=== PATIENT | female | born 1980 | race Caucasian/White ===

== ENCOUNTER 2019-11-05 15:20 | Outpatient (CLI) | payer BC, SELFPAY ==
--- NOTE | ~2019-11-05 | US_ITS ---
EXAMINATION: US pelvic complete w TV DATE: 11/05/2019 16:34 INDICATION: Right lower quadrant abdominal pain. TECHNIQUE: Multiple transabdominal and endovaginal sonographic images of the pelvis were obtained. COMPARISON: CT and ultrasound dated 03/01/2019 FINDINGS: The uterus is not visualized and reportedly surgically absent. The right ovary measures 6.3 x 3.9 x 5 .3 cm. Within the right ovary is a 2.8 x 2.7 x 2.4 cm complex cystic lesion with multiple thin hospital internship al septations yielding a reticulated pattern, typical for hemorrhagic cyst. The left ovary measures 4 .4 x 2.8 x 4.5 cm. There are couple small anechoic cysts/follicles within the left ovary, the largest measuring approximately 8mm. The remainder of the left ovary is comprised of 3 relatively homogeneou s hypoechoic lobular regions, the largest measuring approximately 3.1 cm. It is unclear whether the l obular components represent solid soft tissue or complex cystic lesion. Vascular flow is identified i n both ovaries on color Doppler. There is a small amount of free fluid in the pelvis. IMPRESSION: 1. 2.8 cm likely hemorrhagic cyst within the right ovary. 2. Lobular hypoechoic regions within the left ovary, unclear whether this represents solid soft tissu e or complex fluid such as Morquio's less organized hemorrhagic cysts. Solid neoplasm cannot be absol utely excluded. Consider either 6 or 12 week follow-up ultrasound or further evaluation with contrast -enhanced MRI. Reviewed, dictated and finalized at location A. IMPRESSION: 1. 2.8 cm likely hemorrhagic cyst within the right ovary. 2. Lobular hypoechoic regions within the left ovary, unclear whether this repre sents solid soft tissue or complex fluid such as Morquio's less organized hemor rhagic cysts. Solid neoplasm cannot be absolutely excluded. Consider either 6 o r 12 week follow-up ultrasound or further evaluation with contrast-enhanced MRI .
[2019-11-05 16:08] LABS: Basophils Absolute Auto 0.1 K/mm3 (0.0-0.1); Basophils Percent Auto 0.6 % (0.2-1.2); Eosinophils Absolute Auto 0.6 K/mm3 (0-0.3); Eosinophils Percent Auto 4.1 % (0-4.4); Hematocrit 39.5 % (37.0-47.0); Hemoglobin 13.6 g/dL (12.0-15.0); Immature Granulocyte Absolute 0.04 K/mm3 (0.00-0.031); Immature Granulocyte Percent A 0.3 % (0-0.5); Lymphocytes Absolute Auto 2.42 K/mm3 (0.9-3.2); Lymphocytes Percent Auto 17.1 % (18.3-44.2); Mean Corpuscular HGB Conc 34.4 g/dl (32-36); Mean Corpuscular Hemoglobin 29.7 pg (26-34); Mean Corpuscular Volume 86.2 fl (80-100); Mean Platelet Volume 10.8 fl (7.4-10.4); Monocytes Absolute Auto 1.1 K/mm3 (0.1-0.6); Neutrophils Absolute Auto 9.9 K/mm3 (1.3-6.7); Neutrophils Percent Auto 69.9 % (45.5-73.1); Platelet Count Result 337 k/mm3 (150-375); Red Blood Count 4.58 M/mm3 (4.2-5.4); Red Cell Distribution Width 13.6 % (11.5-14.5); White Blood Count 14.1 K/mm3 (4.5-10.0)
[2019-11-05 16:22] LABS: Alanine Aminotransferase 82 U/L (4-35); Albumin Level 4.2 g/dL (3.5-5.1); Alkaline Phosphatase 84 U/L (38-126); Anion Gap 10 mmol/L (8-16); Aspartate Amino Transferase 52 U/L (14-36); Bilirubin,Total 0.6 mg/dL (0.2-1.3); Blood Urea Nitrogen 19 mg/dL (7-17); Calcium 9.2 mg/dL (8.4-10.2); Carbon Dioxide 26 mmol/L (22-30); Chloride 98 mmol/L (98-107); Estimated Glomerular Filt Rate > 60; Glucose 96 mg/dL (65-105); Potassium 2.9 mmol/L (3.4-5.0); Sodium 134 mmol/L (137-145)
== END 2019-11-05 15:21 | disposition home or self-care (01) ==
PROVIDERS: PCP Internal Medicine; Visit Provider Registered Nurse
DX: N83.201 Unspecified ovarian cyst, right side (principal)
CPT/HCPCS: 36415; 76830; 76856; 80053; 85025

== ENCOUNTER 2019-11-06 09:50 | Outpatient (CLI) | payer BC, SELFPAY ==
--- NOTE | ~2019-11-06 | CT_ITS ---
EXAMINATION: CT abdomen pelvis w con EXAM DATE: 11/06/2019 10:23 INDICATION: Right lower quadrant pain, elevated white blood cell count, constipation. TECHNIQUE: Spiral CT of the abdomen and pelvis was performed following intravenous injection of 100 m L Omnipaque 350. Axial, coronal and sagittal images were reviewed. The dose-length product (DLP) fo r this examination was 533.95 mGy-cm. The exposure was tailored according to patient size (auto mA e xposure control), and iterative reconstruction (ASIR) was used as additional dose reduction technique . Comparison is made to prior examination from 03/01/2019. FINDINGS: The liver, spleen, adrenal glands and pancreas are unremarkable. There are cholecystectomy clips. Portal and splenic veins are patent. Kidneys enhance symmetrically. There is no hydronephr osis. There is a 3 mm right inferior calyceal stone. Patient has had hysterectomy. Both ovaries appea r enlarged measuring about 4 x 5 cm. There is cystic lesion in the right kidney. There is fat strandi ng, inflammation in the pelvis and around the ovaries. There is bladder wall thickening, enhancing mu cosa, surrounding inflammation. On prior study the ovaries were smaller and there was no pelvic or b ladder inflammation. Also several loops of small bowel adjacent to this which appear inflamed. There is no retroperitoneal or pelvic lymphadenopathy. Appendix is normal in caliber and does not appear obstructed. Small amount of fat stranding in the re gion, suspected to be secondary to the pelvic findings. The stomach and small bowel are unremarkable . There is expected amount of colonic stool. No free intraperitoneal gas. The heart is normal in size. There are no pericardial or pleural effusions. The lung bases are unremarkable. There are n o osteoblastic or osteolytic lesions identified. IMPRESSION: Mildly enlarged ovaries, inflammation around ovaries, bladder (with enhancing mucosa), an d also several adjacent small bowel loops. Could be cystitis, pelvic inflammatory disease, less like ly inflammatory bowel disease. Correlating with yesterday's pelvic sonogram, which demonstrated prote inaceous cystic ovarian regions bilaterally, containing proteinaceous fluid, differential diagnosis i ncludes inflammatory endometriomas. Reviewed, dictated and finalized at location B. IMPRESSION: Mildly enlarged ovaries, inflammation around ovaries, bladder (with enhancing mucosa), and also several adjacent small bowel loops. Could be cyst itis, pelvic inflammatory disease, less likely inflammatory bowel disease. Geri elating with yesterday's pelvic sonogram, which demonstrated proteinaceous cyst ic ovarian regions bilaterally, containing proteinaceous fluid, differential di agnosis includes inflammatory endometriomas.
== END 2019-11-06 09:51 | disposition home or self-care (01) ==
LOC: ANHIMG 09:52
PROVIDERS: PCP Internal Medicine; Visit Provider Registered Nurse
DX: R10.11 Right upper quadrant pain (principal); D72.829 Elevated white blood cell count, unspecified; K59.00 Constipation, unspecified; R10.31 Right lower quadrant pain; R93.89 Abnormal findings on diagnostic imaging of other specified body structures
CPT/HCPCS: 74177; Q9967

== ENCOUNTER 2019-12-26 01:01 | Outpatient (CLI) | payer BC, SELFPAY ==
[2019-12-26 19:19] LABS: SARS-CoV-2 RNA PCR Negative
== END 2019-12-26 01:02 | disposition home or self-care (01) ==
LOC: ANHCOVIDDT 01:02
PROVIDERS: PCP Internal Medicine; Visit Provider Obstetrics & Gynecology
DX: Z01.812 Encounter for preprocedural laboratory examination (principal); Z20.828 Contact with and (suspected) exposure to other viral communicable diseases
CPT/HCPCS: 87635; C9803; U0003

== ENCOUNTER 2019-12-26 08:55 | Outpatient (CLI) | payer BC, SELFPAY ==
--- NOTE | 2019-12-26 09:31 | ECG_ITS ---
Measurements Intervals [place] Rate: 81 P: -19 CA: 100 QRS: 50 QRSD: 71 T: 11 QT: 355 QTc: 412 Interpretive Statements SINUS RHYTHM WITH SHORT CA INTERVAL INCOMPLETE RIGHT BUNDLE BRANCH BLOCK BORDERLINE ST ABNORMALITY- ANTERIOR LEADS BASELINE WANDER- V5 BORDERLINE ECG Electronically Signed On 12-26-2019 9:44:33 CDT by Jenaro Pinto D.O.
[2019-12-26 09:36] LABS: Anion Gap 9 mmol/L (8-16); Blood Urea Nitrogen 14 mg/dL (7-17); Calcium 9.5 mg/dL (8.4-10.2); Carbon Dioxide 30 mmol/L (22-30); Chloride 103 mmol/L (98-107); Estimated Glomerular Filt Rate > 60; Glucose 107 mg/dL (65-105); Potassium 3.1 mmol/L (3.4-5.0); Sodium 142 mmol/L (137-145)
== END 2019-12-26 08:56 | disposition home or self-care (01) ==
PROVIDERS: PCP Internal Medicine; Visit Provider Anesthesiology
DX: R10.2 Pelvic and perineal pain (principal); I10 Essential (primary) hypertension; I45.10 Unspecified right bundle-branch block
CPT/HCPCS: 36415; 80048; 86850; 86900; 86901; 93005

== ENCOUNTER 2019-12-28 00:21 | Day surgery (SDC) | payer BC, SELFPAY ==
[2019-12-17 09:59] VITALS: BMI 26.8
--- NOTE | 2019-12-26 08:06 | PM.IMHP ---
H&P: HPI History of Present Illness Date/Time: 12/26/19 08:06 Chief complaint: pelvic pain, right ovarian cyst Narrative: Bettina Sampson is a 39 year old female who is admitted for laparoscopic right salpingo-oophorectomy. She has right-sided pain and discomfort. She is status post hysterectomy. Ultrasound showing a right ovarian mass. Risks and benefits were reviewed Review of Systems Review of Systems: All systems reviewed & are unremarkable except as noted in HPI and below PMFSH Past Medical History Medical History (Updated 03/02/19 @ 00:00 by Obed Murphy) DVT (deep venous thrombosis) Migraine Pulmonary embolism Surgical History Surgical History (Updated 03/01/19 @ 11:00 by Tasha Arnold) History of cholecystectomy History of hysterectomy Social History Social History (Updated 03/01/19 @ 10:10 by Tasha Arnold) Smoking packs per day: 1 Smoking cigarettes per day: 20.0 Years smoked: 20 Smoking pack-years: 20.00 Smoking status: Current every day smoker Tobacco type: cigarettes and e-cigarettes/vaping Additional smoking assessment comments: QUIT SMOKING CIGARETTES 10 YRS AGO. NOW VAPES- HAS VAPED FOR 10 YRS. Alcohol intake: current Substance use: never Gender identity (if verbalized by the patient): Female Spiritual care concerns: No Meds Home Medications and Allergies Home Medications Medication Instructions Recorded Confirmed Type prochlorperazine maleate 10 mg PO Q6H PRN #20 tablet 03/01/19 12/17/19 Rx aspirin 325 mg PO DAILY 12/17/19 12/17/19 History hydrochlorothiazide 12.5 mg PO DAILY 12/17/19 12/17/19 History ketorolac 10 mg PO Q6H PRN 12/17/19 12/17/19 History metoclopramide HCl [Reglan] 10 mg PO Q6H PRN 12/17/19 12/17/19 History topiramate [Topamax] 100 mg PO BID 12/17/19 12/17/19 History venlafaxine [Effexor XR] 225 mg PO DAILY 12/17/19 12/17/19 History zolpidem [Ambien CR] 12.5 mg PO HS 12/17/19 12/17/19 History Allergies Allergy/AdvReac Type Severity Reaction Status Date / Time cefuroxime Allergy Severe RESP Unverified 12/17/19 09:58 DISTRESS Exam Const: General: no acute distress Eyes: General: appearance normal, both eyes and all related structures Neck: Neck: supple and no JVD Thyroid: thyroid normal Resp: Effort & Inspection: normal respiratory effort Auscultation: clear to auscultation bilaterally Cardio: Rate: regular rate Rhythm: regular rhythm GI: Inspection: non-distended GI Palp: Yes Soft to palpation, No Tenderness to palpation present (GI) and No Guarding due to palpation present (GI) Auscultation: normal bowel sounds : General: Yes bladder normal to inspection External Female Exam: normal external appearance Speculum Exam - Vagina: normal appearance of the vagina Speculum Exam - Cervix: Cervix absent Bimanual exam- vagina & uterus: uterus absent Bimanual Exam- Adnexa, other: Adnexal mass present ( fullness in the right adnexa is appreciated) Skin: General skin exam: no rashes or lesions noted Extrem: General: normal to inspection and no edema Psych: Mental Status: mental status grossly normal Affect: normal affect Assessment and Plan Additional Plan impression: Right adnexal mass Plan: Laparoscopic right salpingo-oophorectomy
[2019-12-28] VITALS (12 sets, daily range): BP systolic 90–128; BP diastolic 52–78; PULSE 73–92; RESP 10–20; TEMP 35.9–36.6; O2SAT 93–100
--- NOTE | 2019-12-28 06:46 | WPDHPUPDATE1 ---
History and Physical Update Update Date/Time: 12/28/19 06:46 History and Physical has been reviewed, including an updated exam of the patient. There are NO changes in the patient's condition. Risks, benefits, and alternatives have been discussed and questions answered. Patient agrees to proceed with procedure.
[2019-12-28] MEDS: LACTATED RINGERS 1,000 ML 30 ML IV CONT ×2 (08:03→10:14)
[2019-12-28] MEDS: ACETAMINOPHEN 500 MG TABLET 1000 MG PO (08:04)
[2019-12-28] MEDS: KETOROLAC 15 MG/ML VIAL (*BKC) IV PUSH (08:04)
--- NOTE | 2019-12-28 08:06 | WPDANESEPPF ---
Anes - Initial Pre Proc Eval Procedure: Operation Date: 12/28/19 09:30 Proposed Procedures p Laparoscopic Right Salpingo Oophorectomy - Jonathan Cotto MD Date/Time: 12/28/19 08:06 Surgeon: Jonathan Cotto MD Pre Op Diagnosis: pelvic pain, right ovarian cyst Patient Data Age: 39 Gender: F Height: 5 ft 8 in Weight: 80 kg Allergies Allergy/AdvReac Type Severity Reaction Status Date / Time cefuroxime Allergy Severe RESP Unverified 12/17/19 09:58 DISTRESS Home Medications Medication Instructions Recorded Confirmed Type prochlorperazine maleate 10 mg PO Q6H PRN #20 tablet 03/01/19 12/17/19 Rx aspirin 325 mg PO DAILY 12/17/19 12/17/19 History hydrochlorothiazide 12.5 mg PO DAILY 12/17/19 12/17/19 History ketorolac 10 mg PO Q6H PRN 12/17/19 12/17/19 History metoclopramide HCl [Reglan] 10 mg PO Q6H PRN 12/17/19 12/17/19 History topiramate [Topamax] 100 mg PO BID 12/17/19 12/17/19 History venlafaxine [Effexor XR] 225 mg PO DAILY 12/17/19 12/17/19 History zolpidem [Ambien CR] 12.5 mg PO HS 12/17/19 12/17/19 History hydrocodone-acetaminophen 1 tablet PO Q6H PRN #30 tablet 12/28/19 Rx Patient hx anesthesia problems: post op nausea/vomiting Family hx anesthesia problems: none PMFSH Past Medical History Medical History DVT (deep venous thrombosis) Migraine Pulmonary embolism Surgical History Surgical History History of cholecystectomy History of hysterectomy Social History Social History Smoking packs per day: 1 Smoking cigarettes per day: 20.0 Years smoked: 20 Smoking pack-years: 20.00 Smoking status: Current every day smoker Tobacco type: cigarettes and e-cigarettes/vaping Additional smoking assessment comments: QUIT SMOKING CIGARETTES 10 YRS AGO. NOW VAPES- HAS VAPED FOR 10 YRS. Alcohol intake: current Alcohol use details: RARE Substance use: never Living arrangements: with family Gender identity (if verbalized by the patient): Female Spiritual care concerns: No Anes - Eval Final PreProcedure Day of Procedure 12/28/19 08:06 Patient weight: overweight Heart: regular rate and rhythm Lungs: clear to auscultation Airway: Mallampati scale class II Neurological: alert and oriented Last oral intake: >/= 8 hours ASA classification: II Emergent: no Anesthetic plan: proceed Anesthesia type and monitoring: general ETT and standard monitoring Informed Consent: The patient's anesthetic plan and its attendant risks and benefits were discussed with the patient/family/POA. Questions were solicited and answers provided to the satisfaction of the patient/family/POA.
[2019-12-28] MEDS: SCOPOLAMINE 1.5 MG PATCH TRANSDERM (08:32)
[2019-12-28] MEDS: ONDANSETRON INJ 4 MG/2 ML VIAL IV PUSH (08:32)
[2019-12-28] MEDS: FAMOTIDINE 20 MG/2 ML VIAL IV PUSH (08:32)
[2019-12-28] MEDS: fentaNYL CITRATE INJ (*CRX) 100 MCG/2 ML VIAL 25 MCG IV PUSH ×4 (08:40→11:09)
--- NOTE | 2019-12-28 10:36 | PM.PROC ---
Procedure Note - Detailed Date of procedure: 12/28/19 Pre-op diagnosis: pelvic pain, right ovarian cyst Surgeon: Jonathan Cotto MD Postop diagnosis pelvic pain / right ovarian cyst left ovarian cyst /pelvic adhesions Procedure: Laparoscopic right salpingo-oophorectomy destruction left ovarian cyst. Lysis of Anesthesia: General endotracheal EBL 5cc Complications: None Findings: Absent uterus. Complex right ovarian cyst. Pelvic adhesions. Left ovarian cyst Procedure: The patient was prepped and draped in the normal sterile fashion placed in the dorsal lithotomy position. Under excellent general trach anesthesia the bladder was emptied of clear urine. A sponge stick was placed in the vagina. Gloves were changed. A supraumbilical incision was made and the Veress needle passed in the abdomen. The abdomen was filled with CO2 gas [id number]. The 5mm trocar advanced in the abdomen under direct visualization assuring no injury. Patient was placed in Trendelenburg and a suprapubic incision made. The 5mm trocar advanced under direct visualization assuring. A right lower quadrant incision was made in the 10mm trocar advanced under direct visualization. The above findings were seen and photo documented. The adhesions were sharply dissected using tension from the left and sharp dissection from right. The infundibulopelvic structure on the right was clamped, burned, cut. And the ovary placed in the cul-de-sac. Multiple adhesions were seen to ovarian cyst on the left. This was drained of clear fluid and some clot. Sharp dissection was undertaken carefully avoiding injury to the underlying bowel. Irrigation was undertaken to clear. No other abnormalities were seen. The lower site removed. The ovary removed through the right lower quadrant incision. The incisions closed with 4 Monocryl and glue. Patient was awakened and went to recovery in satisfactory condition. All sponge, needle, instrument counts were correct. There were no immediate complications
[2019-12-28] MEDS: oxyCODONE HCL (*CRX) 5 MG TAB IR PO (12:07)
[2019-12-28] MEDS: ENOXAPARIN 40 MG/0.4 ML SYRINGE SUB-Q (12:38)
== END 2019-12-28 13:00 | disposition home or self-care (01) ==
PROVIDERS: PCP Internal Medicine; Visit Provider Obstetrics & Gynecology
PROC: (CPT 49320; principal; 2019-12-28 09:30)
DX: N83.11 Corpus luteum cyst of right ovary (principal); N83.202 Unspecified ovarian cyst, left side; N73.6 Female pelvic peritoneal adhesions (postinfective); R10.2 Pelvic and perineal pain; Z86.711 Personal history of pulmonary embolism; Z86.718 Personal history of other venous thrombosis and embolism; F17.290 Nicotine dependence, other tobacco product, uncomplicated; Z79.82 Long term (current) use of aspirin
CPT/HCPCS: 58661; 58662; 88305; A9270; J0330; J1100; J1650; J1885; J2250; J2405; J2704; J3010; J7030; J7120

== ENCOUNTER 2020-10-09 08:22 | Outpatient (CLI) | payer BC, SELFPAY ==
--- NOTE | ~2020-10-09 | MM_ITS ---
EXAMINATION: MM screening gale BI w edwina HISTORY: Screening TECHNIQUE: Craniocaudal and mediolateral oblique 3-D tomosynthesis images were obtained and synthetic 2-D images were generated. CAD analysis was submitted and interpreted. COMPARISON: Comparison to multiple prior studies sequentially, with oldest reviewed study dated 08/31. BREAST PARENCHYMAL COMPOSITION: The breasts are heterogenously dense, which may obscure small masses FINDINGS: There are developing asymmetries in the upper outer quadrant of the right breast. The left breast is stable without evidence for malignancy. IMPRESSION: 1. Developing right breast asymmetries. 2. Additional mammographic views and possible breast ultrasound are recommended. BI-RADS Category 0: Incomplete: Needs additional imaging evaluation. Reviewed, dictated and finalized at location A. IMPRESSION: 1. Developing right breast asymmetries. 2. Additional mammographic views and possible breast ultrasound are recommended . BI-RADS Category 0: Incomplete: Needs additional imaging evaluation.
== END 2020-10-09 08:23 | disposition home or self-care (01) ==
LOC: ANHIMG 08:24
PROVIDERS: PCP Internal Medicine; Visit Provider Obstetrics & Gynecology
DX: Z12.31 Encounter for screening mammogram for malignant neoplasm of breast (principal); R92.8 Other abnormal and inconclusive findings on diagnostic imaging of breast
CPT/HCPCS: 77063; 77067

== ENCOUNTER 2020-11-15 10:52 | Outpatient (CLI) | payer BC, SELFPAY ==
--- NOTE | ~2020-11-15 | MR_ITS ---
EXAMINATION: MR brain/brain stem wo/w con EXAM DATE: 11/15/2020 11:57 INDICATION: Migraine headaches. TECHNIQUE: Magnetic resonance imaging (MRI) of the brain/brain stem obtained without contrast. Sagit zaire T1, axial diffusion, gradient echo (T2*), T1, T2, FLAIR sequences obtained. Patient was then inj ected with 17 cc intravenous Multihance contrast. Axial and coronal postcontrast T1 weighted sequence s obtained. 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 Benign bone hypertrophy left outer aspect of the calvarium, probably osteoma. Several nonspecific small white matter signal hyperintensities, not appreciably changed compared to prior study and within normal limits for patien t's current age. There are no areas of restricted diffusion to suggest acute infarction. There is no acute hemorrhage seen on the T2*, a hemosiderin sensitive sequence. No intraparenchymal brain mass. The ventricles are normal in size. There are no extra-axial collections. Flow voids are seen in th e cerebral arteries on the T2-weighted sequences consistent with their expected patency. The orbits are unremarkable. Soft tissue is unremarkable. There are no areas of abnormal enhancement on the p ostcontrast images. IMPRESSION: 1. Several nonspecific white matter hyperintensities unchanged. Reviewed, dictated and finalized at location B.
[2020-11-15 11:49] LABS: Estimated Glomerular Filt Rate > 60
== END 2020-11-15 10:53 | disposition home or self-care (01) ==
PROVIDERS: PCP Internal Medicine; Visit Provider Internal Medicine
DX: G43.909 Migraine, unspecified, not intractable, without status migrainosus (principal)
CPT/HCPCS: 70553; A9577

== ENCOUNTER 2020-11-18 13:08 | Outpatient (CLI) | payer BC, SELFPAY ==
--- NOTE | ~2020-11-18 | MMUS_ITS ---
EXAMINATION: MM diagnostic gale RT w edwina, US breast RT limited HISTORY: Follow-up breast asymmetry TECHNIQUE: Additional 3-D tomosynthesis images of the right breast were performed and synthetic 2-D i mages were generated. CAD analysis was submitted and interpreted. High resolution Limited right breas t ultrasound was performed. COMPARISON: 10/09/2020 BREAST PARENCHYMAL COMPOSITION: The breasts are heterogenously dense, which may obscure small masses. FINDINGS: MAMMOGRAPHIC FINDINGS: There are no suspicious masses, calcifications or architectural distortion in the right breast to sug gest malignancy. ULTRASOUND: Limited right breast ultrasound: At 11:00 near the nipple there is a 3 mm cyst. No suspicious masses to suggest malignancy. IMPRESSION: 1. No evidence for malignancy in the right breast. 2. Routine yearly screening mammogram and regular clinical breast examination are recommended. BI-RADS Category 2: Benign finding(s). Reviewed, dictated and finalized at location A. IMPRESSION: 1. No evidence for malignancy in the right breast. 2. Routine yearly screening mammogram and regular clinical breast examination a re recommended. BI-RADS Category 2: Benign finding(s).
== END 2020-11-18 13:09 | disposition home or self-care (01) ==
LOC: ANHIMG 13:11
PROVIDERS: PCP Internal Medicine; Visit Provider Student in an Organized Health Care Education/Training Program
DX: R92.8 Other abnormal and inconclusive findings on diagnostic imaging of breast (principal)
CPT/HCPCS: 76642; 77061; 77065; G0279

== ENCOUNTER 2021-10-17 09:43 | Emergency (ER) | payer BC, SELFPAY ==
--- NOTE | ~2021-10-17 | XR_ITS ---
EXAMINATION: XR elbow RT 2V DATE: 10/17/2021 09:54 INDICATION: Right elbow deformity TECHNIQUE: Anteroposterior, two oblique and lateral views of the right elbow were obtained. COMPARISON: None. FINDINGS: Right elbow dislocation with the radius and ulna displaced approximately 3 cm medially and 4 similar proximally relative to the distal humerus. There are couple bone fragments positioned along the media l condyle of the distal humerus which could represent portions of the proximal radial head. No eviden t fracture of the distal humerus or proximal ulna. IMPRESSION: 1. Right elbow fracture dislocation with significant displacement of a couple fracture fragments whic h appear to arise from the radial head. Reviewed, dictated and finalized at location A. IMPRESSION: 1. Right elbow fracture dislocation with significant displacement of a couple f racture fragments which appear to arise from the radial head.
[2021-10-17 09:40] VITALS: BP 146/90; PULSE 90; RESP 20; TEMP 36.6; O2SAT 94
--- NOTE | 2021-10-17 09:46 | ED.GENADULT ---
HPI - General Adult General Chief complaint: Extremity Injury, Upper Stated complaint: ELBOW INJURY Source: RN notes reviewed History of Present Illness HPI narrative: Patient presents emergency department via EMS for right arm pain. The patient states she was play kickball and was running from 1st-2nd base when she tripped and fell landing on her right arm she has had pain in the right elbow region since that time with pain with any movement of the right elbow she denies any pain in the right shoulder or the right wrist she denies striking her head or loss of consciousness patient was given fentanyl 100 mcg by EMS in route denies any numbness or tingling in the extremities Related Data Home Medications Medication Instructions Recorded Confirmed aspirin 325 mg tablet,delayed 325 mg PO DAILY 12/17/19 12/28/19 release hydrochlorothiazide 12.5 mg tablet 12.5 mg PO DAILY 12/17/19 12/28/19 ketorolac 10 mg tablet 10 mg PO Q6H PRN Nausea 12/17/19 12/28/19 metoclopramide HCl 10 mg tablet 10 mg PO Q6H PRN Nausea 12/17/19 12/28/19 (Reglan) topiramate 100 mg tablet (Topamax) 100 mg PO BID 12/17/19 12/28/19 venlafaxine 75 mg capsule,extended 225 mg PO DAILY 12/17/19 12/28/19 release 24 hr (Effexor XR) zolpidem 12.5 mg tablet,extended 12.5 mg PO HS 12/17/19 12/28/19 release,multiphase (Ambien CR) Allergies Allergy/AdvReac Type Severity Reaction Status Date / Time cefuroxime Allergy Severe RESP Verified 10/17/21 09:44 DISTRESS Review of Systems Review of Systems: Gen.: Denies fevers or chills ENT: Denies facial pain Respiratory: Denies shortness of breath CV: Denies chest pain GI: Denies abdominal pain nausea, emesis Musculoskeletal: See HPI Neuro: Denies headache or loss of consciousness Skin: Denies rash Except as documented, all other systems reviewed and negative [facility] Past Medical History Medical History DVT (deep venous thrombosis) Migraine Pulmonary embolism Surgical History Surgical History History of cholecystectomy History of hysterectomy Social History Social History Smoking packs per day: 1 Smoking cigarettes per day: 20.0 Years smoked: 20 Smoking pack-years: 20.00 Smoking status: Current every day smoker Tobacco type: cigarettes and e-cigarettes/vaping Additional smoking assessment comments: QUIT SMOKING CIGARETTES 10 YRS AGO. NOW VAPES- HAS VAPED FOR 10 YRS. Alcohol intake: current Alcohol use details: RARE Substance use: never Gender identity (if verbalized by the patient): Female Spiritual care concerns: No Exam Narrative: APPEARANCE: No acute distress, nontoxic, resting in bed EYES: EOMI HEENT: Normocephalic, atraumatic, OMM RESPIRATORY: No respiratory distress Clear to auscultation bilaterally with no rhonchi wheezing or rales. CARDIOVASCULAR: Regular rate and rhythm without murmurs rubs or gallops. ABDOMINAL: Soft, nontender, nondistended,\ MUSCULOSKELETAl: No clubbing cyanosis. No tenderness left upper extremity bilateral lower extremities diffuse tenderness of the right elbow pain with any movement right elbow no tenderness of the right wrist or elbow radial pulse 2+ neurovascular intact NEURO: Awake and alert. Following commands, speech normal, no focal deficits SKIN:: Warm, dry. No rashes lesions or abrasions PSYCHIATRIC: Normal affect/mood, Course Course Emergency Course: Called discussed with Dr. Michelle for orthopedics states patient will need to be transferred she will require surgery that he does not perform we discussed whether I should relocate the elbow secondary to the fracture fragments and he is unsure at this time and defers to tertiary orthopedics Discussed with patient need for transfer request Ella at this time Discussed with Dr. Chung at [facility] who accepts t
[2021-10-17] MEDS: MORPHINE SULFATE (*CRX) 4 MG/ML INJ IV PUSH ×2 (09:47→10:34)
[2021-10-17 10:34] VITALS: BP 126/90; PULSE 100; RESP 20; O2SAT 100
--- NOTE | 2021-10-17 10:37 | PC.NURSE ---
Report given to VIN Corona at [facility]
== END 2021-10-17 10:55 | disposition short-term general hospital (02) ==
PROVIDERS: Emergency Provider Emergency Medicine; PCP Internal Medicine
DX: S52.121A Displaced fracture of head of right radius, initial encounter for closed fracture (principal); Z86.718 Personal history of other venous thrombosis and embolism; Z86.711 Personal history of pulmonary embolism; F17.290 Nicotine dependence, other tobacco product, uncomplicated; Z79.82 Long term (current) use of aspirin; W01.0XXA Fall on same level from slipping, tripping and stumbling without subsequent striking against object, initial encounter; Y93.6A Activity, physical games generally associated with school recess, summer camp and children
CPT/HCPCS: 73070; 96374; 96376; 99285; J2270

== ENCOUNTER 2022-01-19 09:01 | Outpatient (CLI) | payer BC, SELFPAY ==
--- NOTE | ~2022-01-19 | MM_ITS ---
EXAMINATION: MM screening gale BI w edwina HISTORY: Screening TECHNIQUE: Craniocaudal and mediolateral oblique 3-D tomosynthesis images were obtained and synthetic 2-D images were generated. CAD analysis was submitted and interpreted. COMPARISON: Comparison to multiple prior studies sequentially, with oldest reviewed study dated 08/31. BREAST PARENCHYMAL COMPOSITION: The breasts are heterogeneously dense, which may obscure small masses . FINDINGS: There is no evidence of suspicious mass, calcification, or architectural distortion to sugg est malignancy in either breast. There has been no suspicious interval change. IMPRESSION: 1. No mammographic evidence of malignancy. 2. Recommend routine screening mammography in one year. BI-RADS Category 1: Negative Reviewed, dictated and finalized at location A.
== END 2022-01-19 09:02 | disposition home or self-care (01) ==
PROVIDERS: PCP Internal Medicine; Visit Provider Obstetrics & Gynecology
DX: Z12.31 Encounter for screening mammogram for malignant neoplasm of breast (principal)
CPT/HCPCS: 77063; 77067

== ENCOUNTER 2023-04-25 15:13 | Outpatient (CLI) | payer BC, SELFPAY ==
--- NOTE | ~2023-04-25 | MM_ITS ---
EXAMINATION: MM screening gale BI w edwina HISTORY: Screening mammogram TECHNIQUE: Craniocaudal and mediolateral oblique 3-D tomosynthesis images were obtained and synthetic 2-D images were generated. Bilateral rotated lateral CC views. CAD analysis was submitted and interp reted. COMPARISON: 01/19/2022 bilateral screening mammogram 11/18/2020 diagnostic right mammogram and limited right breast ultrasound 10/09/2020, 12/19/2018 bilateral screening mammogram examinations BREAST PARENCHYMAL COMPOSITION: The breasts are heterogeneously dense, which may obscure small masses . FINDINGS: There is no evidence of suspicious mass, calcification, or architectural distortion to sugg est malignancy in either breast. There has been no suspicious interval change. IMPRESSION: 1. No mammographic evidence of malignancy. 2. Recommend routine screening mammography in one year. BI-RADS Category 1: Negative Reviewed, dictated and finalized at location B. PROGRAMMER
== END 2023-04-25 15:14 | disposition home or self-care (01) ==
LOC: ANHIMG 15:22
PROVIDERS: PCP Internal Medicine; Visit Provider Obstetrics & Gynecology
DX: Z12.31 Encounter for screening mammogram for malignant neoplasm of breast (principal)
CPT/HCPCS: 77063; 77067

== ENCOUNTER 2024-06-28 08:00 | Outpatient (CLI) | payer BC, SELFPAY ==
--- NOTE | 2024-06-28 08:07 | ECG_ITS ---
Test Date: 2024-06-28 08:24:36 Measurements Intervals [place] Rate: 85 P: -7 MA: 115 QRS: 37 QRSD: 84 T: 0 QT: 368 QTc: 440 Interpretive Statements SINUS RHYTHM WITH SHORT MA INTERVAL POSSIBLE RIGHT VENTRICULAR CONDUCTION DELAY BORDERLINE ST-T WAVE ABNORMALITY- INFERIOR LEADS BASELINE ARTIFACT- I, II, III, AVL, AVF BORDERLINE ECG No previous ECG available for comparison Electronically Signed On 06-28-2024 09:50:33 CDT by Jenaro Pinto D.O.
--- OUTSIDE RECORDS SUMMARY | 2024-06-28 08:09 | XMS_ITS | Clinical Summary ---
Author Organization [facility] Address [address] [place] [address] Care Team Providers Care Cotton Agent Name Role Phone Terry Myers MD Primary Care Provider Allergies Active Allergy Reactions Criticality Noted Date Comments Cefuroxime Shortness of Breath,Unknown High 11/21/19 14 Medications Onabotulinumtox Sho (BOTOX IJ)Indications: Migraine Inject as directed every 3 (three) months. Indications: Migraine Headache Active Cholecalciferol (VITAMIN D) 125 MCG (5000 UT) Cap Take 1 capsule by mouth daily. Active ketorolac 10 MG tablet TAKE 1 TABLET BY MOUTH EVERY 4 HOURS WITH PROCHLORPERAZINE AND METOCLOPRAMIDE FOR NO MORE THAN 24 HOURS 021 Active metoclopramide 10 MG tablet TAKE 1 TABLET BY MOUTH EVERY 4 HOURS ALONG WITH KETOROLAC AND PROCHLORPERAZINE FOR NO LONGER THAN 24 HOURS Active prochlorperazin e 10 MG tablet TAKE 1 TABLET BY MOUTH WITH KETOROLAC AND METOCLOPRAMIDE EVERY 4 HOURS FOR NO MORE THAN 24 HOURS 021 Active buPROPion XL (WELLBUTRIN XL) 300 MG 24 hr tabletIndicatio ns:Moderate episode of recurrent major depressive disorder (CMS/HCC) Take 1 tablet (300 mg total) by mouth daily. 90 tablet 3 024 Active hydroCHLOROthia zide (MICROZIDE) 12.5 MG tabletIndicatio ns:Essential hypertension Take 1 tablet (12.5 mg total) by mouth every morning. 90 tablet 3 024 Active potassium chloride CR (KLOR-CON M) 20 MEQ tabletIndicatio ns:Essential hypertension TAKE 1/2 TABLET(10 MEQ) BY MOUTH TWICE DAILY 90 tablet 3 024 Active aspirin 325 MG tablet Take 1 tablet (325 mg total) by mouth daily. Active Na sulfate-K sulfate-Mg sulfate (SUPREP BOWEL PREP KIT) 17.5-3.13-1.6 GM/177ML Solution Take 177 mLs by mouth every 12 (twelve) hours. Per GI instructions 354 mL 024 Active LORazepam (ATIVAN) 0.5 MG tabletIndicatio ns:Anxiety TAKE 1 TABLET(0.5 MG) BY MOUTH EVERY 6 HOURS NEEDED FOR ANXIETY 30 tablet 2 024 Active omeprazole (PRILOSEC) 40 MG capsuleIndicati ons:Gastroesoph ageal reflux disease without esophagitis TAKE 1 CAPSULE(40 MG) BY MOUTH DAILY 90 capsule 025 Active zaleplon (SONATA) 10 MG capsuleIndicati ons:Primary insomnia TAKE 1 CAPSULE(10 MG) BY MOUTH EVERY NIGHT AT BEDTIME 30 capsule 025 Active venlafaxine XR (EFFEXOR-XR) 75 MG 24 hr capsuleIndicati ons:Moderate episode of recurrent major depressive disorder (CMS/HCC) TAKE 3 CAPSULES(225 MG) BY MOUTH DAILY 90 capsule 025 Active venlafaxine XR (EFFEXOR-XR) 75 MG 24 hr capsuleIndicati ons:Moderate episode of recurrent major depressive disorder (CMS/HCC) TAKE 3 CAPSULES(225 MG) BY MOUTH DAILY 90 capsule 025 2024 Discontinued zaleplon (SONATA) 10 MG capsuleIndicati ons:Primary insomnia TAKE 1 CAPSULE(10 MG) BY MOUTH EVERY NIGHT AT BEDTIME 30 capsule 025 2024 Discontinued Active Problems Problem Noted Date Diagnosed Date Family history of colon cancer 11/01/2023 Gastroesophageal reflux dise ase, unspecified whether esophagitis present 11/01/2023 Family history of esophageal cancer 11/01/2023 Family history of gastric cancer 11/01/2023 Dysphagia, unspecified type 11/01/2023 Gastroesophageal reflux disease without esophagi tis 10/17/2023 Elevated WBC count 11/06/2019 Constipation 11/06/2019 Essential hypertension 07/11/2019 Iron deficiency anemia 12/08/2017 History of pulmonary embolism 09/16/2017 Lower leg DVT (deep venous t hromboembolism), chronic ([facility]) 09/16/2017 BMI 26.0-26.9,adult 08/29/2017 Overview (04/26/2018): Transitioned From: BMI 25.0-25.9,adult Peripheral edema 08/25/2015 Intractable chronic migraine without aura and without status migrainosus 03/11/2015 Insomnia 12/13/2011 Anxiety 11/25/2011 Depression 11/25/2011 Vitamin D deficiency 11/25/2011 Resolved Problems Problem Noted Date Diagnosed Date Resolved Date Screening for colon cancer 11/01/2023 0 11/07/2023 Dysphagia, unspecified type 11/01/2023 02/20/2024 Screening for colon cancer 11/01/2023 1 05/06/2023 Closed fracture of proximal end of right radius 11/02/2021 02/20/2024 RLQ abdominal pain 11/06/2019 Pulmonary embolism ([facility]) 07/15/2017 11/02/2021 Low back pain 05/18/2012 10/22/2019 Migraine headache 11/25/2011 06/08/2021 Encounters Date Type Department Care Team Description 06/22/2024 7:28 AM CDT - 06/22/2024 11:59 PM CDT Hospital Encounter [facility] Ultrasound [address] [place] [address] Terry Myers MD Discharge Disposition: Home or Self Care (Routine Discharge) 06/22/2024 Telephone [facility] Family & Internal Medicine [address] [phone] Terry Myers MD Radiology Results (Pelvic US) 06/22/2024 Travel 06/20/2024 MyChart Message Enc [facility] Family & Internal Medicine [address] [phone] Terry Myers MD left sided abd mass 05/31/2024 Telephone [facility] Family & Internal Medicine [address] [phone] Terry Myers MD Lab Results 05/29/2024 8:10 AM CDT - 05/29/2024 11:59 PM CDT Hospital Encounter [facility] [address] [place] [address] Terry Myers MD Discharge Disposition: Home or Self Care (Routine Discharge) 05/29/2024 Travel 05/11/2024 8:30 AM ORDER ANALYST - 05/11/2024 11:59 PM ORDER ANALYST Hospital Encounter [facility] [address] [place] [address] Terry Myers MD Discharge Disposition: Home or Self Care (Routine Discharge) 05/11/2024 [employer] Message [facility] Family & Internal [address] [phone] Terry Myers MD Failed mammogram 05/11/2024 Travel 04/13/2024 [employer] Message Enc [facility] Family & Internal [address] [phone] Terry Myers MD Mammogram from Last 3 Months Immunizations Name Administration Dates Next Due FLUCELVAX (ccIIV3, TRIVALENT, 0.5mL) 01/16/2024 Flucelvax 6 Months+ (Prefill ed Syringe) 01/10/2020 Fluzone Adult - >Age 3 (Pref illed Syringe) 12/24/2017 Influenza (Generic) 01/11/2017 Influenza Adult (Generic) 01/07/2023,,12/24/2017, 017 Tdap (Boostrix) 11/30/2016 Tdap (Generic) 04/21/2023,04/26/2014 Family History Medical History Relation Comments Aortic Valve Stenosis Father COPD Father Cancer Father Combined cell libby ng Coronary artery disease Father Diabetes Father Early Hearing Loss Father Heart Father Heart Disease Father Stents x 2, Tavr Hyperlipidemia Father Hypertension Father Heart Disease Maternal Grandfather Valve repla cement, [place]/ Colon Cancer Maternal Grandmother Esophageal cancer Maternal Uncle Stomach cancer Maternal Uncle Breast Cancer Mother COPD Mother Cancer Mother Breast & invasiv e ovarian/uterine cancer Depression Mother Diabetes Mother Emphysema Mother Hypertension Mother Hyperlipidemia Sister Relation Status Comments Father Maternal Grandfather Maternal Grandmother Maternal Uncle Alive Mother Sister Social History Tobacco Use Types Packs/Day Years Used Date Smoking Tobacco: Former Cigarettes 2 - 1998 Smokeless Tobacco: Never Tobacco Cessation:Counseling Given: Yes Alcohol Use Standard Drinks/Week Comments Not Currently 0 (1 standard drink = 0.6 oz pur e alcohol) rare AUDIT-C Answer Date Recorded Frequency of Alcohol Consumption Monthly or less 04/26/2018 Average Number of Drinks Not on file 019 Frequency of Binge Drinking Not on file 08/2018 PHQ-2 Answer Date Recorded Patient Health Questionnaire-2 Score 0 11/01/2023 Comments No Sex and Gender Information Value Date Recorded Sex Assigned at Female 05/29/2024 8:06 AM CDT Legal Sex Female 8:18 PM CDT Gender Identity Female 06/08/2021 6:26 AM CDT Sexual Orientation Straight 06/08/2021 6: 26 AM CDT Last Filed Vital Signs Vital Sign Reading Time Taken Comments Blood Pressure 120/91 03/05/2024 12:05 PM ORDER ANALYST Pulse 82 03/05/2024 11:47 AM ORDER ANALYST Temperature 36.3 C (97.3 F) 03/05/2024 11:39 AM ORDER ANALYST Respiratory Rate 16 03/05/2024 11:39 AM ORDER ANALYST Oxygen Saturation 98% 03/05/2024 12:05 PM ORDER ANALYST Inhaled Oxygen Concentration - - Weight 79.6 kg (175 lb 8 oz) 02/20/2024 8:13 AM ORDER ANALYST Height 172.7 cm (5' 8 ) 02/20/2024 8:13 AM ORDER ANALYST Body Mass Index 26.68 02/20/2024 8:13 AM ORDER ANALYST Plan of Treatment Upcoming Encounters Date Type Department Care Team (Late st Contact Info) Description 09/06/2024 10:20 AM CDT Office Visit [facility] Family & Internal Medicine [address] [phone] Terry Myers MD [address] [place] [id number] Health Maintenance Due Date Last Done Comments Hepatitis C 1996 Hepatitis B Vaccines (1 of 3 - 19+ 3-dose series) 1997 Annual Physical 01/22/2022 01/22/2021 PHQ-2 (Physician [place]) 03/21/2024 11/01/2023 COVID-19 Vaccine (4 - 2023- season) 2025 12/23/2020, 03/29/2020, 03/08/2020 Postponed from 11/20/2023 (Patient Refused) Mammogram Screening 05/29/2026 05/29/2024, 05/11/2024, 04/25/2023, Additional history exists DTaP, Tdap and Td Vaccines (4 - Td or Tdap) 04/21/2033 04/21/2023, 11/30/2016, 04/26/2014 Colorectal Cancer Screening Colonoscopy (10 Years) 03/05/2034 03/05/2024 HPV Vaccines Aged Out No longer eligi ble based on patient's age to complete this topic Meningococcal B Vaccine Aged Out No l onger eligible based on patient's age to complete this topic Meningococcal Vaccine Aged Out No matt diego eligible based on patient's age to complete this topic Pneumococcal Vaccine: Pediatrics (0 to 5 Years) and At-Risk Patients (6 to 64 Years) Aged Out No longer eligible based on patient's age to complete this topic RSV Immunizations Under 20 Months Aged Out No longer eligible based on patient's age to complete this topic Medical Devices Implanted Type Area [employer] Professor Device Identifier Shelf Expiration Date Model / Serial / Lot Elbow Elbow Procedures Procedure Name Priority Date/Time Associated Diagnosis Comments US PELVIC NON OB COMP TA+TV AMBER 06/22/2024 8:14 AM CDT Abnormal female pelvic exam MG DIAG W MARY RT DIGI Routine 05/29/2024 9:05 AM CDT Abnormal mammogram MG SCREENING W MARY NOE DIGI Routine 05/11/2024 8:59 AM ORDER ANALYST Screening mammogram for breast cancer from Last 3 Months Results * US PELVIC NON OB COMP TA+TV (06/22/2024 8:14 AM CDT) Anatomical Region Laterality Modality Pelvis Ultrasound 06/22/2024 8:36 AM CDT Impressions 06/22/2024 8:39 AM CDT =====IMPRESSION:===== 1. Large left adnexal mass, likely of ovarian etiology. Neoplasm or other etiologies possible. Ordered By: TERRY MYERS Interpreted By: Jonathan Trotter MD, 06/22/2024 8:36 AM Narrative 06/22/2024 8:39 AM CDT [place] [address] EXAMINATION: Non-OB pelvic ultrasound EXAM DATE/TIME: 06/22/2024 7:29 AM REASON FOR EXAM: pelvic mass COMPARISON: None TECHNIQUE: Transabdominal and transvaginal ultrasound evaluation of the pelvic contents was performed for analysis of grayscale and color Doppler imaging characteristics. FINDINGS: Left pelvic mass measures 14.2 x 8.7 x 10.6 cm. Internal echoes are seen. Findings likely represent the left ovary. Septa are noted. Multiple masses and/or complex multiloculated mass in the left ovary are possible. One of these measures 13.1 x 7.3 x 8.6 cm. Second adjacent mass measures 8.4 x 8.6 x 5.2 cm. Additional complex cystic area measures 2.3 x 3.6 x 2.1 cm. Color-flow enhancement spectral Doppler waveform is seen. The right ovary and uterus are not visualized. No pelvic fluid seen. Procedure Note Jonathan Trotter MD - 06/22/2024 [place] [id number] [place] [address] EXAMINATION: Non-OB pelvic ultrasound EXAM DATE/TIME: 06/22/2024 7:29 AM REASON FOR EXAM: pelvic mass COMPARISON: None TECHNIQUE: Transabdominal and transvaginal ultrasound evaluation of thepelvic contents was performed for analysis of grayscale and color Dopplerimaging characteristics. FINDINGS: Left pelvic mass measures 14.2 x 8.7 x 10.6 cm. Internal echoesare seen. Findings likely represent the left ovary. Septa are noted.Multiple masses and/or complex multiloculated mass in the left ovary arepossible. One of these measures 13.1 x 7.3 x 8.6 cm. Second adjacent massmeasures 8.4 x 8.6 x 5.2 cm. Additional complex cystic area measures 2.3 x3.6 x 2.1 cm. Color-flow enhancement spectral Doppler waveform is seen. The right ovary and uterus are not visualized. No pelvic fluid seen. =====IMPRESSION:===== 1. Large left adnexal mass, likely of ovarian etiology. Neoplasm or otheretiologies possible. Ordered By: TERRY MYERS Interpreted By: Jonathan Trotter MD, 06/22/2024 8:36 AM Terry Myers MD ULTRASOUND Final Result * MG DIAG W MARY RT DIGI (05/29/2024 9:05 AM CDT) Anatomical Region Laterality Modality Breast Right Mammography 05/29/2024 9:12 AM CDT Impressions 05/29/2024 9:14 AM CDT =====IMPRESSION:===== No mammographic findings suggestive of malignancy ASSESSMENT: ACR BI-RADS 1 - NEGATIVE Recommendation: 1: Routine Screening Bilateral Ordered By: TERRY MYERS Interpreted By: John Leung MD, 05/29/2024 9:12 AM Narrative 05/29/2024 9:14 AM CDT [facility] [address] [place] [address] EXAMINATION: Digital right diagnostic mammogram with 3-D tomosynthesis EXAM DATE/TIME: 05/29/2024 8:44 AM REASON FOR EXAM: Callback from screening for right breast asymmetry COMPARISON: 05/11/2024, 04/25/2023, 01/19/2022 TECHNIQUE: Digital diagnostic mammography of the right breast was performed in addition to 3-D Tomosynthesis technique. This study was read with the assistance of a computer-aided detection system. TISSUE DENSITY: The breasts are heterogeneously dense, which may obscure small masses. FINDINGS: With additional views, the right breast asymmetry effaces normally compatible with benign parenchymal tissue. There are no suspicious calcifications, masses, architectural distortion or skin thickening. There has now been no significant interval change. us Terry Myers MD MAMMO Final Result * MG SCREENING W MARY NOE DIGI (05/11/2024 8:59 AM ORDER ANALYST) Anatomical Region Laterality Modality Breast Bilateral Mammography 05/11/2024 9:13 AM ORDER ANALYST Impressions 05/11/2024 9:45 AM ORDER ANALYST ===== IMPRESSION: ===== 1. Additional imaging. Right. Assessment: ACR BI-RADS 0 - INCOMPLETE: NEEDS ADDITIONAL IMAGING EVALUATION Recommendation: 1:Additional Imaging Right Comments: Ordered By: TERRY MYERS Interpreted By: Young Chandler, 05/11/2024 9:13 AM Narrative 05/11/2024 9:45 AM ORDER ANALYST [facility] [address] [place] [address] EXAMINATION: Digital bilateral screening mammogram with 3-D tomosynthesis EXAM DATE/TIME: 05/11/2024 8:25 AM REASON FOR EXAM: breast cancer screening Breast carcinoma in mother at age 62. COMPARISON: 01/19/2022. 04/25/2023 Technique: Digital screening mammography of both breasts was performed in addition to 3-D Tomosynthesis technique. This study was read with the assistance of a computer-aided detection system. Tissue density: The breasts are heterogeneously dense, which may obscure small masses. Findings: Asymmetric tissue within the upper outer aspect of the right breast. Posterior depth. No malignant microcalcifications. No skin thickening or nipple retraction. Axillary regions are within normal limits. Terry Myers MD MAMMO Final Result from Last 3 Months Insurance Care Teams Cotton Agent Relationship Specialty Start Date End Date Terry Myers MD [address] [place] [address] PCP - General 07/21/15
--- OUTSIDE RECORDS SUMMARY | 2024-06-28 08:09 | XMS_ITS | Referral Summary ---
Author Organization [facility] Address [address] [place] [address] Care Team Providers Care Cadd Operator Name Role Phone Terry Myers MD Primary Care Provider [phone] Allergies Active Allergy Reactions Criticality Noted Date Comments Seffin Shortness of breath High 10/17/2021 Medications HYDROcodone-kelly taminophen (NORCO) 5-325 mg per tabletIndicatio ns:Pain Take 2 tablets by mouth every 4 (four) hours as needed for pain 42 tablet 2 Active senna-docusate (PERICOLACE) 8.6-50 mg Take 1 tablet by mouth daily 42 tablet 2 Active apixaban (ELIQUIS) 2.5 mg tablet Take 1 tablet (2.5 mg total) by mouth 2 (two) times a day 60 tablet 2 Active aspirin 81 mg enteric coated tablet Take 1 tablet (81 mg total) by mouth 2 (two) times a day for 14 days For blood clot prevention. Take with food. 28 tablet 2 10/18/19 22 Discontinu ed(Stop Taking at Discharge) Active Problems Problem Noted Date Diagnosed Date Closed fracture of proximal end of right radius 11/02/2021 Fall 10/17/2021 Closed fracture dislocation of right elbow 10/17 Overview (10/17/2021): Added automatically from request for surgery [id number] Constipation 11/06/2019 Elevated WBC count 11/06/2019 Essential hypertension 07/11/2019 Iron deficiency anemia 12/08/2017 Lower leg DVT (deep venous thromboembolism), chr onic 09/16/2017 Migraine 09/16/2017 Peripheral edema 08/25/2015 Intractable chronic migraine without aura and without status migrainosus 03/11/2015 Insomnia 12/13/2011 Anxiety 11/25/2011 Depression 11/25/2011 Vitamin D deficiency 11/25/2011 Social History Tobacco Use Types Packs/Day Years Used Date Smoking Tobacco: Never Assessed AUDIT-C Answer Date Recorded Q1: How often do you have a drink containing alc ohol? Monthly or less 10/17/2021 Q2: How many drinks containi ng alcohol do you have on a typical day when you are drinking? 1 or 2 10/17/2021 Q3: How often do you have si x or more drinks on one occasion? Never 10/17/2021 Comments No Sex and Gender Information Value Date Recorded Sex Assigned at Not on file Legal Sex Female 11:28 AM CDT Gender Identity Not on file Sexual Orientation Not on file Last Filed Vital Signs Vital Sign Reading Time Taken Comments Blood Pressure 125/81 10/17/2021 10:30 PM CDT Pulse 96 10/17/2021 10:30 PM CDT Temperature 36 C (96.8 F) 10/17/2021 9:30 PM CDT Respiratory Rate 15 10/17/2021 10:30 PM CDT Oxygen Saturation 98% 10/17/2021 10:30 PM CDT Inhaled Oxygen Concentration - - Weight 86.2 kg (190 lb) 10/17/2021 12:43 PM CDT Height 172.7 cm (5' 8 ) 10/17/2021 11:44 AM CDT Body Mass Index 28.89 10/17/2021 11:44 AM CDT Plan of Treatment Not on file Medical Devices Implanted Type Area Gang Mower Operator Device Identifier Shelf Expiration Date Model / Serial / Lot Arthrex Inc Corkscrew Ii Fiberwire 5.5mm 16.3mm 2 2 Full Thread [place] Suture [id number] - [id number] Implanted:Qty: 1 on 10/17/2021 by Mayte Gabriel MD at [facility] Other - see comments Ar[employer]rex Inc [id number] 02/17/2026 [id number] / / [id number] Description:suture Mej[employer] Evolve 18mm Modular Elbow +2mm Head Radial Proline [id number] - [id number] Implanted:Qty: 1 on 10/17/2021 by Mayte Gabriel MD at [facility] Other - see comments [employer] 10/18/2028 [id number] / / Description:Implant Head rad ial Pown[employer] Inc Evolve 5.5mm Modular Elbow +2mm Stem Radial Proline [id number] - [id number] Implanted:Qty: 1 on 10/17/2021 by Mayte Gabriel MD at [facility] Other - see comments [employer] 12/30/2024 [id number] / / Description:Stem radial Insurance [place] [place] AM[employer] [place] Care Teams Cadd Operator Relationship Specialty Start Date End Date Terry Myers MD [address] [place], [place] [id number] PCP - General Internal Medicine 10/17/21
--- OUTSIDE RECORDS SUMMARY | 2024-06-28 08:09 | XMS_ITS | Clinical Summary ---
Author Organization [facility] Address [address] [place] [address] Care Team Providers Care Engraver Steel Plate Name Role Phone Terry Myers MD Primary Care Provider [phone] Allergies Active Allergy Reactions Criticality Noted Date Comments Cefuroxime Shortness of Breath/Wheezing High 015 Medications ketorolac tromethamine (TORADOL) 10 mg tablet TAKE 1 TABLET BY MOUTH WITH PROCHLORPERAZINE AND METOCLOPRAMIDE EVERY 4 HOURS FOR NO MORE THAN 24 HOURS 12/10/19 17 Active metoclopramide HCl (REGLAN) 10 mg tablet TAKE 1 TABLET BY MOUTH EVERY 4 HOURS WITH KETOROLAC AND PROCHLORPERAZINE FOR NO MORE THAN 24 HOURS 12/10/19 17 Active prochlorperazine maleate (COMPAZINE) 10 mg tablet TAKE 1 TABLET BY MOUTH WITH KETOROLAC AND METOCLOPRAMIDE EVERY 4 HOURS FOR NO MORE THAN 24 HOURS 12/10/19 17 Active LORazepam (ATIVAN) 0.5 mg tablet TK 1 T PO Q 6 H PRN 0 06/28/19 18 Active topiramate (TOPAMAX) 100 mg tablet TK 1 T PO BID 11 08/21/19 18 Active venlafaxine (EFFEXOR XR) 150 mg Extended Release 24 hour capsule TK 1 C PO D 11 08/23/19 18 Active cholecalciferol, Vitamin D3, 5,000 unit Capsule Take 5,000 Units by mouth. Active zolpidem (AMBIEN CR) 12.5 mg Controlled Release tablet TK 1 T PO HS PRN FOR SLEEP 3 08/30/19 18 Active aspirin (TANA) 325 mg tablet Take 325 mg by mouth daily. Active enoxaparin (LOVENOX) 40 mg/0.4 mL injection Take daily til 02-01-18, restart -17 24 hrs post op, continue x 10 days. 16 Syringe 01/25/20 18 Active Active Problems Problem Noted Date Diagnosed Date Lower leg DVT (deep venous thromboembolism), chr onic 09/16/2017 Migraine 09/16/2017 History of pulmonary embolism 09/16/2017 Family History Medical History Relation Name Comments Diabetes Father Heart Disease Father High Cholesterol Father Hypertension Father Breast Cancer Mother Depression Mother Hypertension Mother Respiratory Disease Mother High Cholesterol Sister Relation Name Status Comments Father Mother Sister Social History Tobacco Use Types Packs/Day Years Used Date Smoking Tobacco: Every Day Cigarettes 0.3 10 Smokeless Tobacco: Never Alcohol Use Standard Drinks/Week Comments Yes 0 (1 standard drink = 0.6 oz pur e alcohol) ocassionally Comments No Sex and Gender Information Value Date Recorded Sex Assigned at Not on file Legal Sex Female 9:57 AM CDT Gender Identity Not on file Sexual Orientation Not on file Last Filed Vital Signs Vital Sign Reading Time Taken Comments Blood Pressure 146/89 11/18/2017 10:18 AM CDT Pulse 85 11/18/2017 10:18 AM CDT Temperature 36.7 C (98.1 F) 11/18/2017 10:18 AM CDT Respiratory Rate 18 09/16/2017 11:1 5 AM CDT Oxygen Saturation 96% 11/18/2017 10: 18 AM CDT Inhaled Oxygen Concentration - - Weight 88.8 kg (195 lb 12.8 oz) 018 10:18 AM CDT Height 172.7 cm (5' 8 ) 11/18/2017 10:1 8 AM CDT Body Mass Index 29.77 11/18/2017 10:18 AM CDT Plan of Treatment Health Maintenance Due Date Last Done Comments DTAP/TDAP/TD VACCINES (1 - Tdap) 1997 HEPATITIS B VACCINES (1 of 3 - 19+ 3-dose series) 1997 HPV/Cotest (21-29) 07/03/1999 CERVICAL CANCER SCREENING 2008 HPV/Cotest (30-65) 2008 PAP SMEAR 2008 BREAST CANCER SCREENING 2018 COLORECTAL SCREENING 07/03/2023 Colorectal Cancer Screening 07/03/2023 FIT-DNA Q 3 years 07/03/2023 FIT/FOBT Q 1 year 07/03/2023 Flex Sig/CT Colonography Q 5 years 07/03/2023 INFLUENZA VACCINE (#1) 2023 HPV VACCINES Aged Out No longer eligi ble based on patient's age to complete this topic Insurance [facility] OPTIONS PPO [id number] Care Teams Engraver Steel Plate Relationship Specialty Start Date End Date Terry Myers MD [address] [place] [address] PCP - General Internal Medicine 09/16/17
--- OUTSIDE RECORDS SUMMARY | 2024-06-28 08:09 | XMS_ITS | Encounter Summary ---
Author Organization [facility] Address [address] [place] [address] Care Team Providers Care Disease Case Manager Name Role Phone Terry Myers MD Primary Care Provider [phone] Encounter Details Date Type Department Care Team (Late st Contact Info) Description 09/14/2022 MyCTelllert Message Enc [facility] Family & Internal Medicine [id number] [place] [phone] Terry Myers MD [address] [place] [address] Lillie ZURITA Social History Tobacco Use Types Packs/Day Years Used Date Smoking Tobacco: Former Cigarettes Q uit: 03/21/2010 Smokeless Tobacco: Never Alcohol Use Standard Drinks/Week Comments Not Currently 0 (1 standard drink = 0.6 oz pur e alcohol) AUDIT-C Answer Date Recorded Frequency of Alcohol Consumption Monthly or less 04/26/2018 Average Number of Drinks Not on file 019 Frequency of Binge Drinking Not on file 08/2018 PHQ-2 Answer Date Recorded Patient Health Questionnaire-2 Score 0 05/05/2022 Comments No Sex and Gender Information Value Date Recorded Sex Assigned at Female 05/29/2024 8:06 AM CDT Legal Sex Female 8:18 PM CDT Gender Identity Female 06/08/2021 6:26 AM CDT Sexual Orientation Straight 06/08/2021 6: 26 AM CDT documented as of this encounter Plan of Treatment Upcoming Encounters Date Type Department Care Team (Late st Contact Info) Description 09/06/2024 10:20 AM CDT Office Visit [facility] Family & Internal Medicine - [address] [address] Terry Myers MD [address] [place] [address] documented as of this encounter Visit Diagnoses Not on filedocumented in this encounter Additional Health Concerns Assessment Noted Time PHQ-9 Depression Total Score: 2 05/05/19 10:55 AM CABIN AGENT documented as of this encounter Care Teams Disease Case Manager Relationship Specialty Start Date End Date Terry Myers MD [address] [place] [address] PCP - General 07/21/15 documented as of this encounter
--- OUTSIDE RECORDS SUMMARY | 2024-06-28 08:09 | XMS_ITS | Clinical Summary ---
Author Organization [facility] Address [address] [place] [address] Care Team Providers Care Design Tech Name Role Phone Terry Myers MD Primary Care Provider [phone] Allergies Active Allergy Reactions Criticality Noted Date [...] (10/17/2021): Added automatically from request for surgery [id number] Constipation 11/06/2019 Elevated WBC count 11/06/2019 Essential [...] 10/17/2021 11:44 AM CDT Plan of Treatment Health Maintenance Due Date Last Done Comments Breast Cancer Screening-Mammogram 1978 Colon Cancer Screening-Colonoscopy 1978 Depression Screening 1978 Hepatitis C Screening 1978 Hepatitis B Screening 1996 Regular Well Visit/Exam 18-64 1996 Covid-19 Vaccine ( season) 2023 12/23/2020, 03/29/2020, 03/08/2020 Influenza Vaccine (Season Ended) 2024 01/02/2021, 01/10/2020, 12/24/2017, Additional history exists DTaP/Tdap/Td Vaccine (4 - Td or Tdap) 11/30/2026 11/30/2016, 04/26/2014, 04/26/2014 HPV Vaccines Aged Out No longer eligi ble based on patient's age to complete this topic Pneumococcal vaccine <65 Aged Out No longer eligible based on patient's age to complete this topic Medical Devices Implanted Type Area Biostatistics Manager Device Identifier Shelf Expiration Date Model / Serial / Lot Arthrex Inc Corkscrew Ii Fiberwire 5.5mm 16.3mm 2 2 Full Thread [place] Suture [id number] - [id number] Implanted:Qty: 1 on 10/17/2021 by Mayte Gabriel MD at [facility] Other - see comments Ar[employer]rex Inc [id number] 02/17/2026 [id number] / / [id number] Description:suture [employer] Evolve 18mm Modular Elbow +2mm Head Radial Proline [id number] - [id number] Implanted:Qty: 1 on 10/17/2021 by Mayte Gabriel MD at [facility] Other - see comments [employer] 10/18/2028 [id number] / / Description:Implant Head rad ial [employer] Evolve 5.5mm Modular Elbow +2mm Stem Radial Proline [id number] - [id number] Implanted:Qty: 1 on 10/17/2021 by Mayte Gabriel MD at [facility] Other - see comments [employer] 12/30/2024 [id number] / / Description:Stem radial Insurance [facility] Care Teams Design Tech Relationship Specialty Start Date End Date Terry Myers MD [address] [place] [address] PCP - General Internal Medicine 10/17/21
--- OUTSIDE RECORDS SUMMARY | 2024-06-28 08:09 | XMS_ITS | Clinical Summary ---
Author Organization [facility] Address [address] [place] [address] Care Team Providers Care Worm Picker Name Role Phone Terry Myers MD Primary Care Provider [phone] Source Comments [facility],non-owned Affiliates and Associated Physician Practices is amultiple site organization consisting of ambulatory clinics and hospital sitesin [place], [place] and [place]. This disclosure is being madepursuant to the Care Everywhere program and may not contain all information available regarding this patient. Last updated 17.[facility] Allergies Active Allergy Reactions Criticality Noted Date Comments Cefuroxime 03/11/2015 Medications * Be aware that medications may not be up to date on this document. Alwaysverify current medications with the patient. Medication Sig Dispensed Refills Start Date End Date Status vitamin D (CHOLECACIFEROL) 5000 UNITS Take 1 (one) capsule by mouth at bedtime Active LORazepam (ATIVAN) 0.5 MG tablet Take 1 (one) tablet by mouth as needed for Anxiety Active multivitamin daily (THERAGRAN) tablet Take 1 (one) tablet by mouth at bedtime Active venlafaxine XR 24hr (EFFEXOR XR) 150 MG capsule Take 225 mg by mouth once daily 5 05/15/2015 Active aspirin (ASPIRIN) 325 MG tablet Take 1 (one) tablet by mouth once daily Active hydroCHLOROthiazi de (HYDRODIURIL) 12.5 MG 08/09/2019 Active buPROPion XL 24hr (WELLBUTRIN-XL) 150 MG tablet 01/22/2021 Active zaleplon (Sonata) 10 MG capsule 09/14/2022 Active prochlorperazine (Compazine) 10 MG tabletIndications :Intractable chronic migraine without aura and without status migrainosus,Statu s migrainosus TAKE 1 TABLET BY MOUTH EVERY 4 HOURS 10 tablet 3 11/09/2022 Active metoclopramide (Reglan) 10 MG tabletIndications :Intractable chronic migraine without aura and without status migrainosus,Statu s migrainosus TAKE 1 TABLET BY MOUTH EVERY 4 HOURS 10 tablet 3 11/09/2022 Active ketorolac (Toradol) 10 MG tabletIndications :Intractable chronic migraine without aura and without status migrainosus,Statu s migrainosus TAKE 1 TABLET BY MOUTH EVERY 4 HOURS WITH PROCHLORPERAZINE AND METOCLOPRAMIDE FOR NO MORE THAN 24 HOURS 10 tablet 3 11/09/2022 Active tiZANidine (Zanaflex) 2 MG tablet Take 1 (one) tablet by mouth every 8 hours as needed for Muscle Spasms 15 tablet 06/30/2023 Active methylPREDNISolon e (Medrol Dosepak) 4 MG tablet Take by mouth as directed 1 Each 06/30/2023 Active Hospital, Clinic, or Other Facility Administered Medication Ordered Dose Route Frequency Start Date End Date Status onabotulinumtoxin A (Botox) injection 155 UnitsIndications:Intractabl e chronic migraine without aura and without status migrainosus 155 Units IM ONCE 06/14/2024 06/14/2024 Ended Active Problems Problem Noted Date Diagnosed Date Intractable chronic migraine without aura and without status migrainosus 03/11/2015 Encounters Date Type Department Care Team Description 06/11/2024 12:40 PM CDT Procedure visit [facility] [address] [facility] [address] [place] [phone] Enrico Tafoya MD Intractable chronic migraine without aura and without status migrainosus from Last 3 Months Social History Tobacco Use Types Packs/Day Years Used Date Smoking Tobacco: Former Smokeless Tobacco: Current Tobacco Cessation:Ready to Q uit: Not Asked; Counseling Given: Not Answered Comments:vapor Alcohol Use Standard Drinks/Week Comments Yes 0 (1 standard drink = 0.6 oz pur e alcohol) rare Sex and Gender Information Value Date Recorded Sex Assigned at Not on file Gender Identity Not on file Sexual Orientation Not on file Last Filed Vital Signs Vital Sign Reading Time Taken Comments Blood Pressure 120/80 06/30/2023 12:09 PM CDT Pulse 90 09/26/2023 9:28 AM CDT Temperature 37 C (98.6 F) 06/30/2023 12:09 PM CDT Respiratory Rate 16 06/11/2024 12:26 PM CDT Oxygen Saturation 99% 09/26/2023 9:28 AM CDT Inhaled Oxygen Concentration - - Weight 98.4 kg (217 lb) 06/11/2024 12:26 PM CDT Height 175.3 cm (5' 9 ) 06/11/2024 12:26 PM CDT Body Mass Index 32.05 06/11/2024 12:26 PM CDT Plan of Treatment Upcoming Encounters Date Type Department Care Team (Late st Contact Info) Description 09/05/2024 10:00 AM CDT Procedure visit [facility] [address] [facility] [address] [place] [address] [place] [address] [facility] [address] [place], [place] [id number] Health Maintenance Due Date Last Done Comments COLOGUARD (AGES 45-75) - COLON CA SCREENING [address] COLONOGRAPHY - COLON CA SCREENING 1978 FIT - COLON CA SCREENING 1978 FLEX SIG - COLON CA SCREENING 1978 PAP SMEAR 1978 HIV SCREENING 1993 HEPATITIS C SCREENING 06/27/1996 DTAP/TDAP/TD VACCINES (1 - Tdap) 1997 HEPATITIS B VACCINE (1 of 3 - 19+ 3-dose series) 1997 SCREENING FOR DIABETES 08/03/2018 COVID-19 VACCINE ( - season) 2023 DEPRESSION SCREENING 03/21/2024 MAMMOGRAM 05/29/2026 05/29/2024, 0203/2024, 05/11/2024, Additional history exists LIPID TESTING 05/30/2028 05/31/2023, 04/21, 03/02/2021, Additional history exists ZOSTER VACCINE (1 of 2) 2028 COLONOSCOPY - COLON CA SCREENING 03/05/2034 03/05/2024, 03/05/2024 Colorectal Cancer Screening 03/05/2034 INFLUENZA VACCINE Completed 01/16/2024, , 01/02/2021, Additional history exists HIB VACCINE Aged Out No longer eligi ble based on patient's age to complete this topic HPV VACCINE Aged Out No longer eligi ble based on patient's age to complete this topic MENINGOCOCCAL (Group B) VACCINE SHARED DECISION-MAKING Aged Out No longer eligible based on patient's age to complete this topic MENINGOCOCCAL GROUPS A/C/Y/W VACCINE Aged Out No longer eligible based on patient's age to complete this topic PNEUMOCOCCAL VACCINE Aged Out No long er eligible based on patient's age to complete this topic Care Teams Worm Picker Relationship Specialty Start Date End Date Terry Myers MD [address] [place] [address] PCP - General Internal Medicine 03/05/20
[2024-06-28 11:17] LABS: Anion Gap 13 mmol/L (4-12); Blood Urea Nitrogen 12 mg/dL (7-17); Calcium 9.3 mg/dL (8.4-10.2); Carbon Dioxide 27 mmol/L (22-30); Chloride 100 mmol/L (98-107); Estimated Glomerular Filt Rate > 60; Glucose 101 mg/dL (65-110); Potassium 3.8 mmol/L (3.4-5.0); Sodium 140 mmol/L (137-145)
== END 2024-06-28 08:01 | disposition home or self-care (01) ==
LOC: ANHSURGERY 08:05
PROVIDERS: Anesthesiology; PCP Internal Medicine; Visit Provider Obstetrics & Gynecology
DX: N83.209 Unspecified ovarian cyst, unspecified side (principal); I10 Essential (primary) hypertension; Z79.899 Other long term (current) drug therapy; Z01.818 Encounter for other preprocedural examination; R94.31 Abnormal electrocardiogram [ECG] [EKG]
CPT/HCPCS: 36415; 80048; 86850; 86900; 86901; 93005

== ENCOUNTER 2024-06-29 01:31 | Day surgery (SDC) | payer BC, SELFPAY ==
[2024-06-26 08:37] VITALS: BMI 31.2
--- NOTE | 2024-06-26 08:43 | PC.NURSE ---
Report to the Outpatient Waiting Room, entrance under the green pavilion located off [facility], at time _0800_ on date _[id number]_. Planned Procedure Time: _1000_.? Time changes happen often and if your time is changed the preop area will call you the afternoon before. - You and your visitor will be asked to self-screen and do not enter if you have any COVID symptoms. Please call surgeon if you need to reschedule. - A mask is optional within the hospital at this time. Patients may have clear liquids (water, carbonated beverages, clear teas, apple juice) until 3 hours prior to surgery with a maximum of 20 ounces. - No food from midnight until time of surgery and no smoking, or chewing tobacco (or any form of nicotine). No chewing gum, candy or mints. Take only the following medications with a SIP of water on the morning of surgery: ___Venlafaxine____ DO NOT STOP ANY OF YOUR OTHER PRESCRIPTION MEDICATIONS PRIOR TO SURGERY EXCEPT THE FOLLOWING Hold all vitamins and supplements for 3 days per anesthesiologist. Medications to discontinue per physician ____Patient stopped aspirin yesterday [id number] Date to take last dose Please no make-up, nail turkish, hairspray, perfume, deodorant, or body powder the day of surgery.? No jewelry (including any body piercings) or valuables the day of surgery, leave them at home.? Please take a shower or bath the night before, or the morning of, surgery with an antibacterial soap.? Wear comfortable, loose fitting clothing.? - Jewelry must be removed prior to entering the operating room.? Rings and piercings that are not removed may be cut off. - The hospital will not accept responsibility for valuables.? - Please leave all valuables, including medications, at home the day of surgery. If you are going home after surgery, a licensed driver guide must drive you home.? - NO public transportation without another adult if you receive anesthesia. - We recommend that an adult stay with you for 24 hours following discharge. - We also recommend that you do not drive, make important decision, drink alcoholic beverages, or take any drugs that were not prescribed by your health care provider for at least 24 hours after your discharge time. Follow any additional instructions given to you from your surgeon. Telephone instructions given to __Kelly___and asked if any additional questions and then verbalized understanding. Patient advised to call surgeon office or pre surgery nurse liaison [phone] if any additional questions.
--- NOTE | 2024-06-26 12:39 | PM.IMHP ---
H&P: HPI History of Present Illness Date/Time: 06/26/24 12:39 Chief Complaint: Complex left ovarian cyst Narrative: This patient is status post hysterectomy admitted for laparoscopic left salpingo-oophorectomy. She has complex 12cm ovarian cyst which appears benign ultrasound risks and benefits reviewed in great detail. This will make her permanently menopausal and is her other ovary has been removed risks and benefits reviewed in full Review of Systems Review of Systems: Gen.: Denies fevers or chills ENT: Denies facial pain Respiratory: Denies shortness of breath CV: Denies chest pain GI: Denies abdominal pain nausea, emesis Musculoskeletal: See HPI Neuro: Denies headache or loss of consciousness Skin: Denies rash Except as documented, all other systems reviewed and negative FORMERLY [facility] Past Medical History Medical History Pulmonary embolism DVT (deep venous thrombosis) Migraine Surgical History Surgical History History of cholecystectomy History of hysterectomy Family History Family History Mother Depression Family history of diabetes mellitus in first degree relative Father Family history of diabetes mellitus in first degree relative Other Family history of gastrointestinal disorder Family history of kidney stones Social History Social History Smoking packs per day: 1 Smoking cigarettes per day: 20.0 Years smoked: 11 Smoking pack-years: 11.00 Smoking status: Former smoker Tobacco type: cigarettes Smoking end date: 06/26/10 Additional smoking assessment comments: QUIT SMOKING CIGARETTES 10 YRS AGO. NOW VAPES- HAS VAPED FOR 10 YRS. Alcohol intake: current Alcohol use details: RARE Substance use: never Living arrangements: with family Gender identity (if verbalized by the patient): Female Spiritual care concerns: No Meds Home Medications and Allergies Home Medications ?Medication ?Instructions ?Recorded ?Confirmed ?Type prochlorperazine maleate 10 mg 10 mg PO Q6H PRN nausea and 03/01/19 06/26/24 Rx tablet vomiting #20 tabs aspirin 325 mg tablet,delayed 325 mg PO DAILY 12/17/19 06/26/24 History release hydrochlorothiazide 12.5 mg tablet 12.5 mg PO DAILY 12/17/19 06/26/24 History ketorolac 10 mg tablet 10 mg PO Q6H PRN Nausea 12/17/19 06/26/24 History metoclopramide HCl 10 mg tablet 10 mg PO Q6H PRN Nausea 12/17/19 06/26/24 History (Reglan) venlafaxine 75 mg capsule,extended 225 mg PO DAILY 12/17/19 06/26/24 History release 24 hr (Effexor XR) potassium chloride 20 mEq 10 meq PO BID 06/26/24 06/26/24 History tablet,extended release(part/cryst) zaleplon 10 mg capsule 10 mg PO HS 06/26/24 06/26/24 History Allergies Allergy/AdvReac Type Severity Reaction Status Date / Time cefuroxime Allergy Severe RESP Verified 06/26/24 08:33 DISTRESS Exam Const: General: cooperative, healthy appearing and comfortable Nutritional Appearance: average body habitus Orientation/consciousness: oriented to person, oriented to place and oriented to time HENMT: Head: normal to inspection Resp: Effort & Inspection: normal respiratory effort Cardio: Rate: regular rate Rhythm: regular rhythm Heart sounds: S1 normal heart sound present and S2 normal heart sound present GI: Inspection: normal to inspection Auscultation: normal bowel sounds : External Female Exam: normal external appearance Speculum Exam - Vagina: normal appearance of the vagina Speculum Exam - Cervix: Cervix absent Bimanual exam- vagina & uterus: uterus absent Bimanual Exam- Adnexa, other: Adnexal mass present on the left tender Assessment and Plan Assessment and plan (1) Left ovarian cyst: Code(s): N83.202 - Unspecified ovarian cyst, left side Status: Acute Plan Proceed with laparoscopic LSO
[2024-06-29] VITALS (16 sets, daily range): BP systolic 128–153; BP diastolic 76–113; PULSE 89–111; RESP 14–20; TEMP 36.2–36.3; O2SAT 93–99
--- OUTSIDE RECORDS SUMMARY | 2024-06-29 01:34 | XMS_ITS | Clinical Summary ---
Author Organization [facility] Address [address] [place] [address] Care Team Providers Care Knitter Hand Name Role Phone Terry Myers MD Primary Care Provider [phone] Allergies Active Allergy Reactions Criticality Noted Date Comments Seffin Shortness of breath High 10/17/2021 Medications HYDROcodone-kelyl taminophen (NORCO) 5-325 mg per tabletIndicatio ns:Pain [...] (10/17/2021): Added automatically from request for surgery [id number] Constipation 11/06/2019 Elevated WBC count 11/06/2019 Essential [...] this topic Medical Devices Implanted Type Area Tenant Selector Device Identifier Shelf Expiration Date Model / Serial / Lot Arthrex Inc Corkscrew Ii Fiberwire 5.5mm 16.3mm 2 2 Full Thread [place] Suture [id number] - [id number] Implanted:Qty: 1 on 10/17/2021 by Mayte Gabriel MD at [facility] Other - see comments Arthrex Inc [id number] 02/17/2026 [id number] / / [id number] Description:suture [employer] Evolve 18mm Modular Elbow +2mm Head Radial Proline [id number] - [id number] Implanted:Qty: 1 on 10/17/2021 by Mayte Gabriel MD at [facility] Other - see comments [employer] 10/18/2028 [id number] / / Description:Implant Head rad ial [employer] Inc Evolve 5.5mm Modular Elbow +2mm Stem Radial Proline [id number] - [id number] Implanted:Qty: 1 on 10/17/2021 by Mayte Gabriel MD at [facility] Other - see comments [employer] 12/30/2024 [id number] / / Description:Stem radial Insurance [facility] Care Teams Knitter Hand Relationship Specialty Start Date End Date Terry Myers MD [address] [place] [address] PCP - General Internal Medicine 10/17/21
--- OUTSIDE RECORDS SUMMARY | 2024-06-29 01:34 | XMS_ITS | Encounter Summary ---
Author Organization [facility] Address [address] [place] [address] Care Team Providers Care Belt Machine Operator Name Role Phone Terry Myers MD Primary Care Provider [phone] Encounter Details Date Type Department Care Team (Late st Contact Info) Description 09/14/2022 MyCiSnapt Message Enc [facility] Family & Internal Medicine [id number] [place] [phone] Terry Myers MD [address] [place] [address] Lillie ZURITA Social History Tobacco Use [...] Description 09/06/2024 10:20 AM CDT Office Visit [facility] Family & Internal Medicine - [address] [address] Terry Myers MD [address] [place] [address] documented as of this encounter Visit Diagnoses Not on filedocumented in this encounter Additional Health Concerns Assessment Noted Time PHQ-9 Depression Total Score: 2 05/05/19 10:55 AM CONSTRUCTION PROJECT ENGINEER documented as of this encounter Care Teams Belt Machine Operator Relationship Specialty Start Date End Date Terry Myers MD [address] [place] [address] PCP - General 07/21/15 documented as of this encounter
--- OUTSIDE RECORDS SUMMARY | 2024-06-29 01:34 | XMS_ITS | Referral Summary ---
Author Organization [facility] Address [address] [place] [address] Care Team Providers Care Head Of Strategy Name Role Phone Terry Myers MD Primary Care Provider [phone] Allergies Active Allergy Reactions Criticality Noted Date [...] (10/17/2021): Added automatically from request for surgery [id number] Constipation 11/06/2019 Elevated WBC count 11/06/2019 Essential [...] on file Medical Devices Implanted Type Area Instructor Programmable Controllers Device Identifier Shelf Expiration Date Model / Serial / Lot Arthrex Inc Corkscrew Ii Fiberwire 5.5mm 16.3mm 2 2 Full Thread [place] Suture [id number] - [id number] Implanted:Qty: 1 on 10/17/2021 by Mayte Gabriel MD at [facility] Other - see comments Arth[employer] Inc [id number] 02/17/2026 [id number] / / [id number] Description:suture [employer] Evolve 18mm Modular Elbow +2mm Head Radial Proline [id number] - [id number] Implanted:Qty: 1 on 10/17/2021 by Mayte Gabriel MD at [facility] Other - see comments [employer] 10/18/2028 [id number] / / Description:Implant Head rad ial [employer] Evolve 5.5mm Modular Elbow +2mm Stem Radial Proline [id number] - [id number] Implanted:Qty: 1 on 10/17/2021 by Mayte Gabriel MD at [facility] Other - see comments [employer] 12/30/2024 [id number] / / Description:Stem radial Insurance [employer] [place] [employer] [place] Care Teams Head Of Strategy Relationship Specialty Start Date End Date Terry Myers MD [address] [place], [place] [id number] PCP - General Internal Medicine 10/17/21
--- OUTSIDE RECORDS SUMMARY | 2024-06-29 01:34 | XMS_ITS | Clinical Summary ---
Author Organization [facility] Address [address] [place] [address] Care Team Providers Care Target Aircraft Controller Name Role Phone Terry Myers MD Primary Care Provider [phone] Allergies Active Allergy Reactions Criticality Noted Date [...] leg DVT (deep venous t hromboembolism), chronic ([facility]) 09/16/2017 BMI 26.0-26.9,adult 08/29/2017 Overview [...] 02/20/2024 RLQ abdominal pain 11/06/2019 Pulmonary embolism ([facility]) 07/15/2017 11/02/2021 Low back pain 05/18/2012 10/22/2019 Migraine headache 11/25/2011 06/08/2021 Encounters Date Type Department Care Team Description 06/22/2024 7:28 AM CDT - 06/22/2024 11:59 PM CDT Hospital Encounter [facility] Ultrasound [address] [place] [address] Terry Myers MD Discharge Disposition: Home or Self Care (Routine Discharge) 06/22/2024 Telephone [facility] Family & Internal Medicine [address] [phone] Terry Myers MD Radiology Results (Pelvic US) 06/22/2024 Travel 06/20/2024 MyChart Message Enc [facility] Family & Internal Medicine [address] [phone] Terry Myers MD left sided abd mass 05/31/2024 Telephone [facility] Family & Internal Medicine [address] [phone] Terry Myers MD Lab Results 05/29/2024 8:10 AM CDT - 05/29/2024 11:59 PM CDT Hospital Encounter [facility] [address] [place] [address] Terry Myers MD Discharge Disposition: Home or Self Care (Routine Discharge) 05/29/2024 Travel 05/11/2024 8:30 AM PUBLICATIONS SALES REPRESENTATIVE - 05/11/2024 11:59 PM PUBLICATIONS SALES REPRESENTATIVE Hospital Encounter [facility] [address] [place] [address] Terry Myers MD Discharge Disposition: Home or Self Care (Routine Discharge) 05/11/2024 [email or web address] Message [facility] Family & Internal [address] [phone] Trery Myers MD Failed mammogram 05/11/2024 Travel 04/13/2024 [email or web address] Message Enc [facility] Family & Internal [address] [phone] Terry Myers MD Mammogram from Last 3 [...] Heart Disease Maternal Grandfather Valve repla cement, [place]/ Colon Cancer Maternal Grandmother Esophageal cancer Maternal [...] Comments Blood Pressure 120/91 03/05/2024 12:05 PM PUBLICATIONS SALES REPRESENTATIVE Pulse 82 03/05/2024 11:47 AM PUBLICATIONS SALES REPRESENTATIVE Temperature 36.3 C (97.3 F) 03/05/2024 11:39 AM PUBLICATIONS SALES REPRESENTATIVE Respiratory Rate 16 03/05/2024 11:39 AM PUBLICATIONS SALES REPRESENTATIVE Oxygen Saturation 98% 03/05/2024 12:05 PM PUBLICATIONS SALES REPRESENTATIVE Inhaled Oxygen Concentration - - Weight 79.6 kg (175 lb 8 oz) 02/20/2024 8:13 AM PUBLICATIONS SALES REPRESENTATIVE Height 172.7 cm (5' 8 ) 02/20/2024 8:13 AM PUBLICATIONS SALES REPRESENTATIVE Body Mass Index 26.68 02/20/2024 8:13 AM PUBLICATIONS SALES REPRESENTATIVE Plan of Treatment Upcoming Encounters Date Type Department Care Team (Late st Contact Info) Description 09/06/2024 10:20 AM CDT Office Visit [facility] Family & Internal Medicine [address] [phone] Terry Myers MD [address] [place] [id number] Health Maintenance Due Date Last Done Comments Hepatitis C 1996 Hepatitis B Vaccines (1 of 3 - 19+ 3-dose series) 1997 Annual Physical 01/22/2022 01/22/2021 PHQ-2 (Physician [place]) 03/21/2024 11/01/2023 COVID-19 Vaccine (4 - 2023- [...] this topic Medical Devices Implanted Type Area Behavioral Medical Director Device Identifier Shelf Expiration Date Model / Serial / Lot Elbow Elbow Procedures Procedure Name Priority Date/Time Associated Diagnosis Comments US PELVIC NON OB COMP TA+TV AMBER 06/22/2024 8:14 AM CDT Abnormal female pelvic exam MG DIAG W MARY RT DIGI Routine 05/29/2024 9:05 AM CDT Abnormal mammogram MG SCREENING W MARY NOE DIGI Routine 05/11/2024 8:59 AM PUBLICATIONS SALES REPRESENTATIVE Screening mammogram for breast cancer from Last [...] 8:36 AM Narrative 06/22/2024 8:39 AM CDT [place] [id number] EXAMINATION: Non-OB pelvic ultrasound EXAM DATE/TIME: 06/22/2024 [...] Procedure Note Jonathan Trotter MD - 06/22/2024 [place] [id number] [place] [address] EXAMINATION: Non-OB pelvic ultrasound EXAM DATE/TIME: 06/22/2024 [...] 9:12 AM Narrative 05/29/2024 9:14 AM CDT [facility] [address] [place] [address] EXAMINATION: Digital right diagnostic mammogram with 3-D [...] W MARY NOE DIGI (05/11/2024 8:59 AM PUBLICATIONS SALES REPRESENTATIVE) Anatomical Region Laterality Modality Breast Bilateral Mammography 05/11/2024 9:13 AM PUBLICATIONS SALES REPRESENTATIVE Impressions 05/11/2024 9:45 AM PUBLICATIONS SALES REPRESENTATIVE ===== IMPRESSION: ===== 1. Additional imaging. Right. Assessment: ACR BI-RADS 0 - INCOMPLETE: NEEDS ADDITIONAL IMAGING EVALUATION Recommendation: 1:Additional Imaging Right Comments: Ordered By: TERRY MYERS Interpreted By: Young Chandler, 05/11/2024 9:13 AM Narrative 05/11/2024 9:45 AM PUBLICATIONS SALES REPRESENTATIVE [facility] [address] [place] [address] EXAMINATION: Digital bilateral screening mammogram with 3-D [...] from Last 3 Months Insurance Care Teams Target Aircraft Controller Relationship Specialty Start Date End Date Terry Myers MD [address] [place] [address] PCP - General 07/21/15
--- OUTSIDE RECORDS SUMMARY | 2024-06-29 01:34 | XMS_ITS | Clinical Summary ---
Author Organization [facility] Address [address] [place] [address] Care Team Providers Care Head Loader Name Role Phone Terry Myers MD Primary Care Provider [phone] Source Comments [facility],non-owned Affiliates and Associated Physician Practices is amultiple site organization consisting of ambulatory clinics and hospital sitesin [place], [place], [place] and [place]. This disclosure is being madepursuant to the Care Everywhere program and may not contain all information available regarding this patient. Last updated 17.[facility] Allergies Active Allergy Reactions Criticality Noted Date [...] Description 06/11/2024 12:40 PM CDT Procedure visit [facility] [address] [facility] [address] [place] [phone] Enrico Tafoya MD Intractable chronic migraine [...] Description 09/05/2024 10:00 AM CDT Procedure visit [facility] [address] [facility] [address] [place] [address] [place] [address] [facility] [address] [place], [place] [id number] Health Maintenance Due Date Last Done Comments [...] age to complete this topic Care Teams Head Loader Relationship Specialty Start Date End Date Terry Myers MD [address] [place] [id number] PCP - General Internal Medicine 03/05/20
--- OUTSIDE RECORDS SUMMARY | 2024-06-29 01:34 | XMS_ITS | Clinical Summary ---
Author Organization [facility] Address [address] [place] [address] Care Team Providers Care Electronics Instructor Name Role Phone Terry Myers MD Primary Care Provider [phone] Allergies Active Allergy Reactions Criticality Noted Date [...] patient's age to complete this topic Insurance [facility] [employer] PPO [id number] [place] [address] Care Teams Electronics Instructor Relationship Specialty Start Date End Date Terry Myers MD [address] [place] [address] PCP - General Internal Medicine 09/16/17
--- NOTE | 2024-06-29 06:33 | WPDHPUPDATE1 ---
History and Physical Update Update Date/Time: 06/29/24 06:33 History and Physical has been reviewed, including an updated exam of the patient. There are NO changes in the patient's condition. Risks, benefits, and alternatives have been discussed and questions answered. Patient agrees to proceed with procedure.
[2024-06-29] MEDS: ACETAMINOPHEN 500 MG TABLET 1000 MG PO (08:20)
--- NOTE | 2024-06-29 08:23 | WPDANESEPPF ---
Anes - Initial Pre Proc Eval Procedure: Operation Date: 06/29/24 10:00 Proposed Procedures p Laparoscopic Left Salpingo Oophorectomy - Jonathan Resendez MD Date/Time: 06/29/24 08:23 Surgeon: Jonathan Resendez MD Pre Op Diagnosis: left ovarian mass, pelvic pain Patient Data Age: 43 Gender: F Height: 1.73 m Weight: 97 kg Last Vital Signs Temp 36.2 C L 06/29/24 08:03 Pulse 100 06/29/24 08:03 Resp 18 06/29/24 08:03 BP 148/113 H 06/29/24 08:03 Pulse Ox 97 06/29/24 08:03 O2 Del Method Room Air 06/29/24 08:03 Allergies Allergy/AdvReac Type Severity Reaction Status Date / Time cefuroxime Allergy Severe RESP Verified 06/29/24 08:15 DISTRESS Home Medications ?Medication ?Instructions ?Recorded ?Confirmed ?Type prochlorperazine maleate 10 mg 10 mg PO Q6H PRN nausea and 03/01/19 06/26/24 Rx tablet vomiting #20 tabs aspirin 325 mg tablet,delayed 325 mg PO DAILY 12/17/19 06/29/24 History release hydrochlorothiazide 12.5 mg tablet 12.5 mg PO DAILY 12/17/19 06/29/24 History ketorolac 10 mg tablet 10 mg PO Q6H PRN Nausea 12/17/19 06/26/24 History metoclopramide HCl 10 mg tablet 10 mg PO Q6H PRN Nausea 12/17/19 06/26/24 History (Reglan) venlafaxine 75 mg capsule,extended 225 mg PO DAILY 12/17/19 06/29/24 History release 24 hr (Effexor XR) potassium chloride 20 mEq 10 meq PO BID 06/26/24 06/29/24 History tablet,extended release(part/cryst) zaleplon 10 mg capsule 10 mg PO HS 06/26/24 06/29/24 History hydrocodone 5 mg-acetaminophen 325 1 tablet PO Q4H PRN pain #20 tabs 06/29/24 Rx mg tablet Patient hx anesthesia problems: none Family hx anesthesia problems: none Results Review: All pre-operative results and documents have been reviewed as part of the pre-operative evaluation. [facility] Past Medical History Medical History Pulmonary embolism DVT (deep venous thrombosis) Migraine Surgical History Surgical History History of cholecystectomy History of hysterectomy Family History Family History Mother Depression Family history of diabetes mellitus in first degree relative Father Family history of diabetes mellitus in first degree relative Other Family history of gastrointestinal disorder Family history of kidney stones Social History Social History Smoking packs per day: 1 Smoking cigarettes per day: 20.0 Years smoked: 11 Smoking pack-years: 11.00 Smoking status: Current every day smoker Tobacco type: cigarettes Smoking end date: 06/26/10 Additional smoking assessment comments: QUIT SMOKING CIGARETTES 10 YRS AGO. NOW VAPES- HAS VAPED FOR 10 YRS. Alcohol intake: current Alcohol use details: RARE Substance use: never Living arrangements: with family Gender identity (if verbalized by the patient): Female Spiritual care concerns: No Anes - Eval Final PreProcedure Day of Procedure 06/29/24 08:23 Patient weight: obese Heart: regular rate and rhythm Lungs: decreased breath sounds Airway: Mallampati scale class II Neurological: alert and oriented Last oral intake: >/= 8 hours ASA classification: III Emergent: no Anesthetic plan: proceed Anesthesia type and monitoring: general ETT and standard monitoring Results Review: All pre-operative results and documents have been reviewed as part of the pre-operative evaluation. Informed Consent: The patient's anesthetic plan and its attendant risks and benefits were discussed with the patient/family/POA. Questions were solicited and answers provided to the satisfaction of the patient/family/POA.
[2024-06-29] MEDS: LACTATED RINGERS 1,000 ML 30 ML IV CONT ×2 (08:25→12:15)
[2024-06-29] MEDS: KETOROLAC 15 MG/ML VIAL (*BKC) IV PUSH (08:30)
[2024-06-29] MEDS: LABETALOL HCL INJ 100 MG/20 ML VIAL IV PUSH (08:40)
[2024-06-29] MEDS: SCOPOLAMINE 1 MG PATCH 1 PATCH TRANSDERM (08:40)
[2024-06-29 08:46] LABS: BEDSIDEPREGUCG Negative (Negative)
--- NOTE | 2024-06-29 12:08 | P.OP_ITS ---
Procedure Note - Detailed Date of Procedure 06/29/24 Pre-op Diagnosis left ovarian mass, pelvic pain Post-op Diagnosis Same Procedure Performed Laparoscopic left oophorectomy with extensive lysis of adhesions Surgeon Jonathan Resendez MD Anesthesia General Indications 43-year-old female status post hysterectomy and right salpingo-oophorectomy with a large left ovarian cyst Findings Right ovary and tube uterus and left tube were absent. A large volleyball +s ized ovarian cyst with multiple adhesions attached noted. Description of Procedure Patient was prepped draped normal sterile fashion placed dorsal lithotomy position. Under excellent general trach anesthesia a sponge stick was placed in the vagina and the bladder drained clear urine. A despite the gloves were changed. A supraumbilical incision made the Veress needle passed in the abdomen. Abdomen filled with CO2 gas [id number]. The 5mm trocar advanced under the Optiview in no injury seen. Patient placed in Trendelenburg right lower quadrant incision 5 under visualization assuring. The large mass was noted in left with the left ovary which was attached to omentum: And left sidewall a left lower quadrant incision made the 10mm trocar advanced under direct visualization injury attention was 1st turned to the benign appearance of the ovary. It was markedly adherent in the cul-de-sac and the left lateral sidewall. It was on movable. Using sharp dissection putting tension on the omentum and bowel which was attached these were sharply dissected away carefully avoiding any injury to the system. Next the and an incision was made and the mass itself and drained of 780cc of chocolate to fluid. At this point then very careful dissection was undertaken laterally mm by mm carefully avoiding injury to white out toward the ureters. Once the infundibulopelvic structure could be skeletonized was clamped, burned, cut the remaining portion of the ovary was placed in an Endo- Catch and removed through the left lower quadrant. As the left lower quadrant did need to be enlarged this would later be closed and with the fascial layer as well. Irrigation was undertaken until clear the raw surface area was sprinkled with Surgicel powder and excellent hemostasis was noted blood loss was estimated about 25cc at that point. The gas was removed from the abdomen and the trocars removed the fascia in the left lower quadrant closed with running 0 Vicryl from lateral edge to lateral edge the skin was closed with 4-0 Monocryl and glue. The patient was awakened went recovery in satisfactory condition. All sponge, needle, instrument counts were correct. There were no immediate complications. In light of the patient's history of a DVT she was placed on Lovenox for the next 10 days 40 might mg prophylactically. Estimated Blood Loss 25 Drains No Packing No Pathology Yes Complications No immediate complications Condition Stable Disposition PACU
[2024-06-29] MEDS: fentaNYL CITRATE INJ (*CRX) 100 MCG/2 ML VIAL 25 MCG IV PUSH ×8 (12:56→13:16)
[2024-06-29] MEDS: oxyCODONE HCL (*CRX) 5 MG TAB IR PO (13:32)
[2024-06-29] MEDS: HYDROmorphone HCL INJ (*CRX) 1 MG/ML SYR IV PUSH ×2 (14:15→14:28)
[2024-06-29] MEDS: diazePAM INJ (*CRX) 10 MG/2 ML SYRINGE 2.5 MG IV PUSH ×2 (15:07→15:29)
== END 2024-06-29 16:10 | disposition home or self-care (01) ==
PROVIDERS: PCP Internal Medicine; Visit Provider Obstetrics & Gynecology
PROC: (CPT 49320; principal; 2024-06-29 10:00)
DX: N83.202 Unspecified ovarian cyst, left side (principal); N73.6 Female pelvic peritoneal adhesions (postinfective); F17.290 Nicotine dependence, other tobacco product, uncomplicated; E66.9 Obesity, unspecified; Z68.32 Body mass index [BMI] 32.0-32.9, adult
CPT/HCPCS: 58661; 88305; A9270; J1100; J1171; J1885; J2003; J2250; J2405; J2704; J3010; J3360; J7120